=== PATIENT | female | born 1940 | race Caucasian/White ===

== ENCOUNTER 2016-09-28 07:38 | Day surgery (SDC) | payer MEDICARE, OTHER ==
[~2016-09-28] VITALS: Ht 160 cm; Wt 59.0 kg
[~2016-09-28 07:38] MED LIST: ASP81TEC PO; CHOL400C8 PO; CREST10T PO; KETO120S TOP; Lactated Ringer's 1,000 ML IV ONE; METO50TA PO; SODI354S PO; SPIR25TA3 PO; SULI150T PO
[2016-09-28] MEDS ORDERED: Lidocaine PF 1% 5 mL Inj ONE (07:39)
[2016-09-28] MEDS ORDERED: Propofol 10,000 mCg/mL 20 mL Inj ONE (07:39)
[2016-09-28 08:00] VITALS: BP 136/66; PULSE 65; RESP 16; O2SAT 100
[2016-09-28] MEDS ORDERED: ASPI-973 PO (08:00)
[2016-09-28] MEDS ORDERED: METO50TA3 PO (08:00)
[2016-09-28] MEDS ORDERED: CHOL400T30 PO (08:00)
[2016-09-28] MEDS ORDERED: Lactated Ringer's 1,000 ML IV SCH (08:49)
--- NOTE | 2016-09-28 08:49 | PCM.HPANE ---
Patient Data Date of Service: Sep 28, 2016 Surgeon Admitting Provider: Attending Provider:Hasmukh Murphy MD Primary Care Physician:Juliana Lopez MD Other Provider:Breonna Moseley Anesthesia Reason for Visit Colon Polyps Ht/WT & BMI Height (Feet): 5 Height (Inches): 3 Weight (Kilograms): 59 Body Mass Index 23.00 Allergies Coded Allergies: No Known Allergies (Verified , 09/28/16) Uncoded Allergies: BEE STING (Allergy, Intermediate, SWELLING, 10/10/13) still happens no epi pen carried Past Anesthesia History Anesthesia History: Denies:: Abnormal Airway, Anesthesia Reactions, Difficult Intubation, Fam Anesthesia Reaction, Fam Malignant Hypertherm, Malignant Hyperthermia Diabetes History Hx Diabetes?: No MRSA MRSA: No Medications Blood Thinner: Aspirin Last Dose Blood Thinner: Sep 26, 2016 Hypertension Medication: Yes Home Meds Incl Beta Renetta: Yes Date Beta Renetta Taken: Sep 27, 2016 Time Beta Renetta Taken: 20:00 Reported Medications Aspirin 81 Mg [id number] Mg PO DAILY Ref 0 09/28/16 Cholecalciferol (Vitamin D3) (Vitamin D)400 Unit [id number] Unit PO DAILY #1 BOTTLE Ref 0 09/28/16 Metoprolol Tartrate 50 Mg Jrbjjh24 Mg PO DAILY 30 Days Ref 0 09/28/16 Sodium,Potassium,&Mag Sulfates (Suprep Bowel Prep Kit)354 Ml Soln. Ml PO 09/27/16 Sulindac 150 Mg Awmcwq410 Mg PO BID 09/27/16 Spironolactone 25 Mg Dsmquh81 Mg PO DAILY #30 TABLET Ref 0 09/27/16 Rosuvastatin Calcium (Crestor)10 Mg Bkgsll42 Mg PO DAILY 30 Days Ref 0 09/27/16 Metoprolol Tart-Expunged Drug, Do Not Renew! 50 Mg Engapr55 Mg PO DAILY 10/10/13 CHOLECALCIFEROL-Expunged Drug, Do Not Renew! (VITAMIN D3-Expunged Drug, Do Not Renew!)400 Unit Rntafta579 Unit PO DAILY 10/09/13 Aspirin-Expunged Drug, Do Not Renew! (Aspirin EC-Expunged Drug, Do Not Renew!) 81 Mg Rzhhit15 Mg PO DAILY DO NOT CRUSH 10/03/13 Discontinued Reported Medications Ketoconazole (Nizoral)120 Ml Qkrkxre892 Ml TOP 09/27/16 Triamterene/HCTZ-Expunged Drug, Do Not Renew! (Triamterene/HCTZ 37.5/25-Expunged ,Do Not Renw)1 Tab Tablet1 Tab PO DAILY 10/03/13 History History of ENT Problems?: No HEENT History: Denies:: Abnormal Airway Difficult Intubation Dysphagia Hearing Problem Hx of Heart Problems?: Yes Cardiovascular History: Positive for:: Hypertension Denies:: AICD Atrial Fibrillation Chest Pain Pacemaker Valvular Heart Disease Hx of Respiratory Problem?: No Neurological History: Denies:: CVA Hx of GI Problems?: Yes Gastrointestinal History: Denies:: Cirrhosis Diverticulitis Gastroesphageal Reflux Hiatal Hernia Rectal Bleeding Hx of Problems?: No Female Hx: Denies:: Currently Musculoskeletal History: Denies:: Joint Replacement Psycho Social History: Denies:: Anxiety Hx Depression Hx Surgeries?: Yes (bladder ca removed appy eye for detatched retina cataract, TONSILS) Hx Any Other Health Problems?: Yes History Blood Transfusions: Denies:: Blood Transfuse Reaction Blood Transfusions Hx Diabetes: No Hx 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)Hx Substance Use: No Smoking Status: Current Every Day Smoker Have You Smoked inLast 12 mo: Yes Stop/Bang Treated for Sleep Apnea?: No Do You Have a CPAP Machine?: No S-Snoring: Do You Snore Loudly: Yes T-Tired: feel tired, fatigued: No O-Obsered: Observed not breath: No P-Blood Pressure: treated: Yes B- Body Mass Index > 35 kg/m2: No A- Age over 50: Yes N- Neck Large Circumference: No G- Gender Male: No IKE Total Score: 3 IKE Risk Assessment: High Risk, =/>3 Yes IKE Category 4 OutPt Procedure: Yes Risk Assessment Category Category 1A: Patient has history of documented sleep apnea, and HAS NOT received any narcotic, sedative or anesthesia administration during this stay. Category 1B: Patient has history of documented sleep apnea, and HAS received any narcotic , sedative or anesthesia administration during this stay Category 2: Patient has SUSPECTED Obstructive Sleep Apnea, and HAS received any narcotic , sedative or anesthesia administration during this stay. Category 3: Patient has SUSPECTED Obstructive Sleep Apnea and HAS NOT received narcotic, sedative or anesthesia administration during this stay. Category 4: Outpatient in Procedural Areas with known sleep apnea or who screen positive for High Risk via the STOP/BANG questionnaire. Exam Exam Vital Signs Vital Signs Date Time Temp Pulse Resp B/P Pulse Ox O2 Delivery O2 Flow Rate FiO2 09/28/16 08:00 36.0 65 16 136/66 100 Room Air General Appearance: Alert, Oriented X3, Cooperative HEENT/AIRWAY: MP 3, Neck Movement Lungs: Clear to Auscultation, Normal Air Movement Heart: Regular Rate/Rhythm, Normal S1, Normal S2 Meds/Labs/Diagnostics Admission Meds Current Medications Lactated Ringer's (Lr) 1,000 ml @ 10 mls/hr Q24H ONCE IV Last administered on 09/28/16t 08:12; Start 09/28/16 at 06:00; Stop 09/29/16 at 05:59 Plan Impression Patient chart reviewed, patient interviewed and anesthestic plan with risks, benefits, and alternatives discussed, and informed consent obtained. NPO Status: > 8 hours ASA Physical Status: ASA2 Mod Systemic Disease Anesthetic Plan: MAC Bene/Risks/Altern/Consents: Yes HP Complete Prior to Induction: Yes Jluis Gray MD Sep 28, 2016 08:35
[2016-09-28] MEDS ORDERED: Ondansetron 2 mg/mL 2 mL Inj IVPUSH PRN (08:50)
[2016-09-28] MEDS ORDERED: MetoCLOpramide 5 mg/mL 2 mL Inj IVPUSH PRN (08:50)
[2016-09-28 09:48] VITALS: BP 112/52; PULSE 68; O2SAT 95
--- NOTE | 2016-09-28 09:53 | PCM.ANEP1 ---
Post Anesthesia Phase 1 PACU Phase 1 Assessment Date of Service: Sep 28, 2016 Vital Signs Vital Signs Date Time Temp Pulse Resp B/P Pulse Ox O2 Delivery O2 Flow Rate FiO2 09/28/16 09:48 68 112/52 95 Room Air 09/28/16 08:00 36.0 65 16 136/66 100 Room Air Anesthetic Administered: MAC Level of Alertness: Sleepy, easy to arouse CONNER's with Equal Strength: Yes Pain: No Nausea or Vomiting: No Oxygen Delivery: Room Air Lungs: Normal Air Movement Jluis Gray MD Sep 28, 2016 09:52
[2016-09-28 10:06] VITALS: BP 143/73; PULSE 76; RESP 14; O2SAT 98
--- NOTE | 2016-09-28 10:13 | ENDO ---
[address] [address] ENDOSCOPY PROCEDURE PATIENT: BLOSSOM JIM : 1940 MR#: [id number] ADMIT: 09/28/2016 JOB ID: [id number] DATE OF SERVICE: 09/28/2016 PRIMARY PROVIDER: Juliana Lopez MD. PROCEDURE: Colonoscopy with hot snare polypectomy, hot forceps polypectomy and cold forceps polypectomy. A 22 modifier was requested. Procedure time was prolonged with multiple polyps removed today. INDICATIONS: A 76-year-old female with a history of adenomatous colon polyps, returning for surveillance. EQUIPMENT: [employer]. SEDATION: Monitored anesthesia as provided by Dr. Jluis Gray. COMPLICATIONS: None identified. BOWEL PREPARATION: Fair, adequate exam. PROCEDURE INFORMATION: After the risks and benefits were explained, written and verbal informed consent was obtained. The patient was brought into the endoscopy suite and placed into the left lateral decubitus position. Sedation was achieved as above. A digital rectal examination accomplished. Mild to moderate internal hemorrhoids noted. The scope was introduced into the rectum and advanced under direct visualization to the cecum as identified by the appendiceal orifice and ileocecal valve. The scope was slowly withdrawn to carefully examine the mucosa for any defects or lesions. Retroflexed views were avoided in the rectum. Multiple direct views were made through the dentate line for exclusion of pathology. The colon was decompressed. The scope removed from the patient who tolerated the procedure well. FINDINGS: In the colon proper in several different sections there were four [address] of hot snare and one of these we touched it up with hot forceps application. The largest was perhaps about 8-9 mm. All of these were sessile. In the rectosigmoid region there were five polyps removed. All of these looked hyperplastic in nature. A couple of these we used a hot snare and three of them we used cold forceps. The patient had diverticulosis in the right and left colon. ENDOSCOPIC DIAGNOSES: 1. Multiple colon polyps. 2. Diverticulosis. 3. Hemorrhoids. RECOMMENDATIONS: 1. Await histopathology. 2. Repeat colonoscopy in 18 months, 1 hour slot.
--- NOTE | 2016-09-28 10:15 | PCM.ANEP2 ---
Post Anesthesia Evaluation ASA/CMS Post Anesthesia Date of Service: Sep 28, 2016 VS in Patient's Normal Range?: Yes Resp Stable; Airway Patent?: Yes CV Function & Hydration Stable: Yes Mental Status Recovered?: Yes Pain control Satisfactory?: Yes N/V Control Satisfactory?: Yes Jluis Gray MD Sep 28, 2016 10:15
[2016-09-28 10:16] VITALS: BP 148/76; PULSE 66; RESP 14; O2SAT 99
[2016-09-28 10:23] VITALS: BP 166/74; PULSE 60; RESP 14; O2SAT 95
--- NOTE | 2016-09-29 11:10 | PATH ---
SURGICAL PATHOLOGY Attending Physician:Eliza Joshi CASE STATUS: Signed Out PATIENT NAME: BLOSSOM JIM PID: [id number] : 1940 DATE COLLECTED:09/28/2016 20:35 SPECIMEN: 1: Colon, Biopsy 2: Colon, Biopsy CLINICAL HISTORY: 1. COLON POLYPS X4 2. RECTAL-SIGMOID POLYP X5 FINAL DIAGNOSIS: 1. Colon Polyps: Tubular adenoma involving two biopsy fragments. Hyperplastic polyp involving two biopsy fragments. 2. Rectosigmoid Polyps: Changes consistent with serrated adenoma, traditional type, with mild dysplasia involving all biopsy fragments. ICD10 D12.7 GROSS DESCRIPTION: The specimen is received in two formalin filled containers labeled with the patient's name. 1). The specimen is sublabeled "colon polyps" and consists of 5 portions of tissue which aggregate to 0.5 x 0.5 x 0.4 CM. The specimen is entirely submitted in cassette 1A. 2). The specimen is sublabeled "rectal sigmoid" and consists of 5 portions of tissue which aggregate to 0.4 x 0.4 x 0.3 CM. The specimen is entirely submitted in cassette 2A. 09/28/2016 [facility] ICD-9 CODES: CPT CODES: 1: 66398 2: 31149 Electronically Signed Out Hasmukh Bailey MD [facility] Pathology [facility] [address], [place] [address] Technical component performed at [facility], [address] [place] [address] Ave[address], [place], [address]
== END 2016-09-28 23:59 | disposition home or self-care (01) ==
LOC: END 07:38
PROVIDERS: ATTEND Internal Medicine Gastroenterology
DX: Z12.11 Encounter for screening for malignant neoplasm of colon (principal); Z86.010 Personal history of colon polyps; D12.7 Benign neoplasm of rectosigmoid junction; K57.30 Diverticulosis of large intestine without perforation or abscess without bleeding; K64.9 Unspecified hemorrhoids; I47.1 Supraventricular tachycardia; I10 Essential (primary) hypertension; I45.10 Unspecified right bundle-branch block; Z85.51 Personal history of malignant neoplasm of bladder; Z79.82 Long term (current) use of aspirin; F17.210 Nicotine dependence, cigarettes, uncomplicated
CPT/HCPCS: 45380; 45385; 88305; J7120